=== PATIENT | female | born 1950 | race Caucasian/White ===

== ENCOUNTER 2018-07-20 23:00 | Emergency (ER) | payer MEDICARE ==
[~2018-07-20] VITALS: Ht 241.3 cm; Wt 74.0 kg
[2018-07-20 23:49] LABS: HEMATOCRIT 38.7 % (37.0-47.0); HEMOGLOBIN 12.5 g/dl (12.0-16.0); IMMATURE GRANULOCYTES 0.4 % (0.0-5.0); MEAN CELL VOLUME 92.1 fL CALC (80.0-100.0); MEAN CORPUSCULAR HGB 29.8 pG CALC (26.0-32.0); MEAN CORPUSCULAR HGB CONC 32.3 g/L CALC (32.0-36.0); NEUT# 7.18 thou/uL (2.00-7.15); RED BLOOD COUNT 4.2 mill/uL (4.20-5.60); RED CELL DISTRI WIDTH 14.7 % (11.5-15.5)
[2018-07-21 00:03] LABS: ALBUMIN 4.2 g/dL (3.2-5.0); ALKALINE PHOSPHATASE 318 u/l (38-126); AMYLASE 43 u/l (30-110); ANION GAP 12 (6-22 (CALC)); BUN 19 mg/dL (8-23); BUN/CREATININE RATIO 37 (12-20 (CALC)); CARBON DIOXIDE 27 mmol/l (22-30); CHLORIDE 107 mmol/l (95-108); CREATININE 0.5 mg/dL (0.5-1.0); GFR > 60 ML/MIN (>=60 (CALC)); GFR FOR AFR.AMER. > 60 ML/MIN (>=60 (CALC)); LIPASE 64 u/l (23-300); POTASSIUM 3.7 mmol/l (3.5-5.1); SGOT/AST 222 u/l (9-36); SODIUM 142 mmol/l (137-146); TOTAL PROTEIN 7.3 g/dL (6.3-8.2)
[2018-07-21 00:16] LABS: MYOGLOBIN 45 ng/mL (0 - 62)
[2018-07-21] MEDS ORDERED: LORTAB 1010 MG PO (02:09)
[2018-07-21] MEDS ORDERED: PREVACID30 M3 PO (02:09)
[2018-07-21] MEDS ORDERED: ZOFRAN ODT4 MG PO (02:09)
[2018-07-21 02:20] LABS: URINE BILIRUBIN - DIPSTICK NEGATIVE (NEGATIVE); URINE BLOOD DIPSTICK TRACE-INTACT (NEGATIVE); URINE COLOR YELLOW; URINE GLUCOSE - DIPSTICK NEGATIVE (NEGATIVE); URINE KETONE NEGATIVE (NEGATIVE); URINE LEUK ESTERASE TRACE (NEGATIVE); URINE PROTEIN - DIPSTICK NEGATIVE (NEG-TRACE); URINE SPECIFIC GRAVITY 1.025; URINE UROBILINOGEN - DIPSTICK 0.2 E.U./dL (0.2)
[2018-07-21 02:25] VITALS: BP 124/71
[2018-07-21 02:29] LABS: URINE CLARITY CLEAR; URINE NITRITE - DIPSTICK POSITIVE (Negative)
[2018-07-21 02:37] LABS: URINE BACTERIA MODERATE hpf; URINE MUCUS FEW hpf (NONE-FEW); URINE RBC 0-2 RBC/hpf (0-5); URINE SQUAMOUS EPITHELIAL CELL FEW EPI/hpf (0-FEW); URINE WBC 20-50 WBC/hpf (0-5)
[2018-07-21] MEDS ORDERED: CIPROFLOXACN500 MG PO (02:54)
== END 2018-07-21 02:25 | disposition home or self-care (01) ==
LOC: ED 23:00
PROVIDERS: Emergency Medicine
DX: R10.13 Epigastric pain (principal); K80.20 Calculus of gallbladder without cholecystitis without obstruction; K29.70 Gastritis, unspecified, without bleeding; N39.0 Urinary tract infection, site not specified; N83.202 Unspecified ovarian cyst, left side; N83.201 Unspecified ovarian cyst, right side; Z98.84 Bariatric surgery status
CPT/HCPCS: S0164

== ENCOUNTER 2022-09-02 07:31 | Day surgery (SDC) | payer MEDICARE ==
[~2022-09-02] VITALS: Ht 152.4 cm; Wt 64.9 kg
[~2022-09-02 07:31] MED LIST: CIPROFLOXACN500 MG PO; FISH OIL1000 M2 PO; LIQUID B121000 MCG/1 PO; LORTAB 1010 MG PO; PERCOCET 5/321 COMBO PO; PREVACID30 M3 PO; VITAMIN D3400 UNI2 PO; ZOFRAN ODT4 MG PO
[2022-09-02] MEDS ORDERED: PERCOCET 5/321 COMBO PO (08:58)
[2022-09-02 11:04] VITALS: BP 104/67
== END 2022-09-02 11:45 | disposition home or self-care (01) ==
LOC: ORM 07:31
PROVIDERS: ATTEND Surgery
PROC: 0YU74JZ Supplement Right Femoral Region with Synthetic Substitute, Percutaneous Endoscopic Approach (ICD-10-PCS; principal; 2022-09-02)
DX: K41.90 Unilateral femoral hernia, without obstruction or gangrene, not specified as recurrent (principal)
CPT/HCPCS: C1781; J0131; J1100

== ENCOUNTER 2022-09-05 08:42 | Observation (INO) | payer MEDICARE ==
[~2022-09-05] VITALS: Ht 152.4 cm; Wt 67.8 kg
[2022-09-05] VITALS (14 sets, daily range): BP systolic 109–145; BP diastolic 43–76
[2022-09-05 09:50] LABS: BASO% 0.1 % (0-3); EOS% 0.7 % (0-8); HEMATOCRIT 36.6 % (37.0-47.0); HEMOGLOBIN 12.2 g/dl (12.0-16.0); IMMATURE GRANULOCYTES 0.2 % (0.0-5.0); LYMPH% 6.6 % (15-41); MEAN CELL VOLUME 96.8 fL CALC (80.0-100.0); MEAN CORPUSCULAR HGB 32.3 pG CALC (26.0-32.0); MEAN CORPUSCULAR HGB CONC 33.3 g/dL CAL (32.0-36.0); MONO% 8.5 % (2-13); NEUT# 8.47 thou/uL (2.00-7.15); NEUT% 83.9 % (42-76); RED BLOOD COUNT 3.78 mill/uL (4.20-5.60); RED CELL DISTRI WIDTH 13.7 % (11.5-15.5)
--- NOTE | 2022-09-05 10:15 | NUR ---
PATIENT TO ED FROM HOME, REPORTS UNABLE TO CONTROL PAIN POST FEMORAL HERNIA REPAIR ON THURSDAY, NO C/O FEVER, NAUSEA, VOMITING OR DIARRHEA.
[2022-09-05 10:23] LABS: ALBUMIN 3.7 g/dL (3.2-5.0); ALKALINE PHOSPHATASE 133 u/l (38-126); ANION GAP 10 (6-22 (CALC)); BUN 19 mg/dL (8-23); BUN/CREATININE RATIO 31 (12-20 (CALC)); CARBON DIOXIDE 26 mmol/l (22-30); CHLORIDE 104 mmol/l (95-108); CREATININE 0.6 mg/dL (0.5-1.0); GFR FOR AFR.AMER. > 60 ML/MIN (>=60 (CALC)); GFR OTHER RACES > 60 ML/MIN (>=60 (CALC)); LIPASE < 10 u/l (23-300); POTASSIUM 4.2 mmol/l (3.5-5.1); SODIUM 136 mmol/l (137-146)
[2022-09-05 10:24] LABS: SGOT/AST 47 u/l (9-36)
[2022-09-05 11:06] LABS: URINE BILIRUBIN - DIPSTICK NEGATIVE (NEGATIVE); URINE BLOOD DIPSTICK LARGE (NEGATIVE); URINE COLOR RED; URINE GLUCOSE - DIPSTICK NEGATIVE (NEGATIVE); URINE KETONE 15 mg/dL (NEGATIVE); URINE PH 6.5 (4.5-8.0); URINE PROTEIN - DIPSTICK 100 mg/dL (NEG-TRACE); URINE UROBILINOGEN - DIPSTICK 0.2 E.U./dL (0.2)
[2022-09-05 11:07] LABS: URINE LEUK ESTERASE MODERATE (NEGATIVE); URINE NITRITE - DIPSTICK NEGATIVE (Negative)
[2022-09-05 11:18] LABS: URINE RBC >100 RBC/hpf (0-5); URINE WBC 50-100 WBC/hpf (0-5)
[2022-09-05 11:19] LABS: URINE BACTERIA FEW hpf
--- NOTE | 2022-09-05 13:26 | NUR ---
PATIENT RESTING QUIETLY AT THIS TIME, NO C/O PAIN OR DISCOMFORT, NO S/S OF DISTRESS NOTED, RESPIRATIONS EVEN AND UNLABORED, AWAITING INPATIENT BED AVAILABILITY.
--- NOTE | 2022-09-05 15:06 | NUR ---
BEDSIDE REPORT GIVEN TO NICOLETTE ON MED SURG. PATIENT SETTLED IN BED. ABLE TO TRANSFER FROM WHEELCHAIR TO BED WITHOUT ASSISTANCE, STEADY GAIT.
--- NOTE | 2022-09-05 15:30 | NUR ---
pt arrived to ms pt a/ox3 assesment and vs completed heart rhythm normal respirations room air. iv site lfa infusing. pt denies skin wound pt stated no bm in 3 days to be medicated per new orders. pt denies additional neeeds all safety precautions in place call light in reach.
--- NOTE | 2022-09-05 18:09 | NUR ---
PT TO BE PROVIDED MEDICATIONS PER EMAR.
--- NOTE | 2022-09-05 19:50 | NUR ---
PATIENT RESTING IN BED LAYING ON HER LEFT SIDE. ALERT AND ORIENTED. ABLE TO MAKE NEEDS KNOWN. ASSESSMENT COMPLETE. DENIES ANY PAIN AT THIS TIME. NO DISTRESS NOTED. ABDOMEN IS TENDER TO TOUCH PATIENT HAS SURGERY ON THURSDAY. ABDOMEN APPEARS SLIGHTLY PUFFY, WITH BRUISING ACROSS. 3 SMALL INCISION SITES ACROSS ABDOMEN INTACT, WITH DERMABOND. PATIENT VOICED HAVING TWO LOOSE BMS IN ROOM BATHROOM WITHOUT DIFFICULTY. DENIES NEEDING ANYTHING AT THIS TIME. BED REMAINS IN LOW POSITION, CALL MCARTHUR AND BELONGINGS IN REACH.
--- NOTE | 2022-09-06 00:50 | NUR ---
PATIENT RESTING IN BED. COMPLAINTS OF PAIN TO ABDOMEN. SCHEDULED TORADOL GIVEN. PATIENT TOLERATED WELL. PATIENT AMBULATES SELF TO THE ROOM BATHROOM. STEADY ON FEET. NO DISTRESS NOTED. BELONGINGS REMAIN BY BEDSIDE AND CALL LIGHT.
[2022-09-06 03:56] VITALS: BP 120/66
[2022-09-06 04:00] VITALS: BP 120/66
--- NOTE | 2022-09-06 04:00 | NUR ---
IV FLUID BAG COMPLETED. NO BAGS AVAILABLE IN BUILDING TO REPLENISH IV FLUIDS. CALLED [facility] TO CHECK IN HOUSE LOCATION FOR IVF, NONE SHOWN. DIRECTOR OF MARKETING [employer] ADS AWARE THAT FLUIDS WILL BE DECIDED WHEN PHARMACY ARRIVES.
--- NOTE | 2022-09-06 04:30 | NUR ---
PATIENT RESTING IN BED. ABLE TO MAKE NEEDS KNOWN. NO COMPLAINTS OF PAIN TO ABDOMEN AT THIS TIME. NO COMPLAINTS OF N/V, PATIENT HAVING BOWEL MOVEMENTS FORMING. BED REMAINS IN LOW POSITION. CALL MCARTHUR IN REACH.
[2022-09-06 07:15] VITALS: BP 124/39
--- NOTE | 2022-09-06 10:26 | NUR ---
Nursing care assumed. Patient alert and oriented x4. Assessment complete. Laproscopic incisions x3 noted to abdomen intact with dermabond. no drainage or inflammation noted; bruising noted at pelvis area. S/P abdominal surgery on 09/02. Patient denies pain at this time, no distress noted. Call light within reach instructed to call for assistance when needed.
--- NOTE | 2022-09-06 12:51 | NUR ---
Patient discharged home with spouse. Discharge and followup appointment instructions provided. Patient states she already has appointment scheduled with Dr. Berrios. IV discontinued from left wrist, catheter intact. No concerns expressed of discharge education. Patient discharged via wheelchair and assisted to car without difficulty.
== END 2022-09-06 12:30 | disposition home or self-care (01) ==
LOC: ED 08:42 → ED-I 12:00 → ED 12:14 → MS2 12:15
PROVIDERS: Family Medicine; ADMIT Surgery; ATTEND Surgery
DX: R11.2 Nausea with vomiting, unspecified (principal); R10.84 Generalized abdominal pain; E66.9 Obesity, unspecified; Z98.84 Bariatric surgery status; Z98.890 Other specified postprocedural states; Z85.43 Personal history of malignant neoplasm of ovary; Z92.21 Personal history of antineoplastic chemotherapy; Z90.49 Acquired absence of other specified parts of digestive tract
CPT/HCPCS: Q9967

== ENCOUNTER 2022-10-14 07:04 | Day surgery (SDC) | payer MEDICARE ==
[~2022-10-14] VITALS: Ht 152.4 cm; Wt 62.6 kg
[~2022-10-14 07:04] MED LIST changes: +IRON325 M1 PO
[2022-10-14 09:44] VITALS: BP 125/73
== END 2022-10-14 09:58 | disposition home or self-care (01) ==
LOC: ENDO 07:04 → ORM 08:45 → ENDO 09:58
PROVIDERS: ATTEND Surgery
PROC: 0DJD8ZZ Inspection of Lower Intestinal Tract, Via Natural or Artificial Opening Endoscopic (ICD-10-PCS; principal; 2022-10-14)
DX: Z12.11 Encounter for screening for malignant neoplasm of colon (principal); K57.30 Diverticulosis of large intestine without perforation or abscess without bleeding; D17.5 Benign lipomatous neoplasm of intra-abdominal organs; K64.8 Other hemorrhoids; K60.2 Anal fissure, unspecified; Z86.010 Personal history of colon polyps; Z98.84 Bariatric surgery status; Z85.43 Personal history of malignant neoplasm of ovary; Z92.21 Personal history of antineoplastic chemotherapy